=== PATIENT | male | born 1945 | race Caucasian/White ===

== ENCOUNTER 2021-03-10 17:00 | Emergency (ER) | payer OTHER ==
[~2021-03-10] VITALS: Ht 165.1 cm; Wt 95.0 kg
[2021-03-10] MEDS ORDERED: CITA20TA6 PO (17:30)
[2021-03-10] MEDS ORDERED: ROSU40TA4 PO (17:30)
[2021-03-10] MEDS ORDERED: IRBE150T14 PO (17:30)
[2021-03-10] MEDS ORDERED: FINA5TAB2 PO (17:30)
[2021-03-10] MEDS ORDERED: TADA5TAB PO (17:30)
[2021-03-10] MEDS ORDERED: NORV5TAB PO (17:30)
[2021-03-10] MEDS ORDERED: ASPI81TA26 PO (17:30)
[2021-03-10] MEDS ORDERED: METO1TAB33 PO (17:30)
[2021-03-10] MEDS ORDERED: PLAV1TAB2 PO (17:30)
[2021-03-10] MEDS ORDERED: HYDR12.55 PO (17:30)
[2021-03-10] MEDS ORDERED: CEFDINIR 300 MG CAP (OMNICEF) PO ONE (21:05)
[2021-03-10] MEDS ORDERED: CEFD300CAP PO (21:06)
[2021-03-10 21:27] VITALS: BP 155/75
== END 2021-03-10 21:46 | disposition home or self-care (01) ==
LOC: M ED 17:00
DX: N30.01 Acute cystitis with hematuria (principal); E78.00 Pure hypercholesterolemia, unspecified; I10 Essential (primary) hypertension; K21.9 Gastro-esophageal reflux disease without esophagitis; Z85.46 Personal history of malignant neoplasm of prostate; Z95.5 Presence of coronary angioplasty implant and graft